=== PATIENT | male | born 1985 | race Caucasian/White ===

== ENCOUNTER 2023-12-04 15:06 | Emergency (ER) | payer BC ==
[~2023-12-04 15:06] MED LIST: Iopamidol 370 76% 100 ML VIAL ONE
[2023-12-04] MEDS ORDERED: Ibuprofen 800 MG TAB ONE (16:39)
[2023-12-04 17:33] LABS: SARS-CoV-2 NAA Rapid Test Not Detected (NotDetected)
[2023-12-04 18:29] LABS: #Eosinphils 0.2 10x3/uL (0.0-0.5); #Monocytes 1.4 10x3/uL (0.0-1.1); #Neutrophils 10.3 10x3/uL (1.5-8.4); %Basophils 0.2 % (0.0-2.0); %Eosinophils 1.6 % (0.0-6.0); %Lymphocytes 9.3 % (18.0-47.0); %Monocytes 10.8 % (0.0-10.0); %Neutrophils 77.5 % (40.0-75.0); Hematocrit 45.1 % (38.8-50.0); Hemoglobin 15.8 g/dL (13.5-17.5); Mean Corpuscular Hemoglobin 29.2 pg (27.0-33.0); Mean Corpuscular Volume 83.2 fl (81.2-95.1); Mean Platelet Volume 10.1 fl (7.4-10.4); Platelet Count 216 10x3/uL (150-450); RBC Distribution Width 12.5 % (11.5-14.5); Red Blood Cell (RBC) Count 5.42 10x6/uL (4.32-5.72); White Blood Cell (WBC) Count 13.2 10x3/uL (3.5-10.5)
[2023-12-04 18:39] LABS: ALT (SGPT) 19 U/L (8-55); AST (SGOT) 15 U/L (5-34); Albumin 4.1 g/dL (3.5-5.0); Alkaline Phosphatase 101 U/L (40-110); Anion Gap 14 mmol/L (10-20); BUN (Urea Nitrogen) 8 mg/dL (8.9-20.6); Bilirubin, Total 0.8 mg/dL (0.2-1.2); Calc. Creatinine Clearance 0 mL/min (70-130); Carbon Dioxide 20 mmol/L (22-29); Chloride 102 mmol/L (98-107); Estimated GFR 114; Globulin 3.4 g/dL (2.4-3.5); Glucose 106 mg/dL (70-105); Potassium 3.5 mmol/L (3.5-5.1); Protein, Total 7.5 g/dL (6.0-8.3); Sodium 132 mmol/L (136-145)
[2023-12-04] MEDS ORDERED: cefTRIAXone (ROCEPHIN) 2 GM VIAL ONE (19:49)
== END 2023-12-04 20:41 | disposition home or self-care (01) ==
LOC: CSHERS 15:06
DX: J18.9 Pneumonia, unspecified organism (principal)
CPT/HCPCS: 71045; 71275; 80053; 83605; 85025; 93005; 96365; J0696; Q9967